=== PATIENT | female | born 1985 | race Caucasian/White ===

== ENCOUNTER 2016-06-09 12:20 | Emergency (ER) | payer MEDICAID ==
[~2016-06-09] VITALS: Ht 157.5 cm; Wt 88.5 kg
[~2016-06-09 12:20] MED LIST: DICLOFENAC 50MG50 MG PO; FIORICET 325 MG1 TAB PO; FLEXERIL10 MG PO; IBUPROFEN200 MG PO; NOMEDS XX; PROTONIX 40MG T40 MG PO; [UNRECOGNIZED DRUG - OTHER] TP
[2016-06-09] MEDS ORDERED: LEXAPRO 10 MG T10 MG PO (12:48)
[2016-06-09 13:04] LABS: UTC STREP SCREEN NOT DETECTED (NOTDETECTED)
[2016-06-09] MEDS ORDERED: ZOFRAN4 MG PO (13:10)
[2016-06-09] MEDS ORDERED: AUGMENTIN 875-1 EACH PO (13:10)
--- NOTE | 2016-06-09 13:11 | Urgent Treatment Center Report ---
History of Present Issue Date/Time Seen by Provider 06/09/16 1303 Visit Reason Pt arrived:Walked Presenting Problem:BODY ACHES AND NAUSEATED DIAHERRA HEADACHE WEAK FEELING X3 DAYS Location if Accident: Onset of symptoms date/time:/ or onset unknown for:MEDICAL HX UNKNOWN Have you (or family members/close friends) recently traveled outside the [place]? N If Yes, where/when: Have you had exposure to infectious disease within the past month? TB? Other? Specify: Patient states that she has been having sinus pain and pressure for about a week that has come and gone but 3 days ago it got worse and she began to have body aches, weakness, diarrhea and headache along with pressure in cheek area and under eyes ALLERGIES Coded Allergies: No Known Allergies (06/09/16) Home Medications Reported Medications Escitalopram Oxalate (Lexapro 10MG) 10 MG PO DAILY History Medical History General Angina: No VA: No Hypertension? No Hyperlipidemia? No CHF? No COPD? No Asthma? No Anemia? Yes Thyroid Problems? No CVA? No Seizures? No Diabetes? No UTI? No Stones? No GB Disease: No Nephritic Syndrome? No Asplenia? No Hepatitis? No MRSA? No TB? No Cancer? No Immunization HX DT/Tetanus 5-10 YRS Surgical Hx Previous Surgery?Y TONSILECTOMY X3 HYSTERECTOMY GALLBLADDER Social History Smoking Hx Smoker: Never Smoker Tobacco: No Alcohol Alcohol: No Review of Systems All Other Systems Reviewed and Negative ENT nose discharge, nose congestion. Gastrointestinal diarrhea, nausea Musculoskeletal denies other (body aches) Psychiatric/Neurological headache Physical Exam Vital Signs Vital Signs Date Time Temp Pulse Resp B/P Pulse O2 O2 Flow FiO2 Ox Delivery Rate 06/09 1246 98.0 89 18 110/66 97 General Appearance Overall looks ill, cheeks swollen under eye puffiness, nose red Ear, Nose, Throat sinus pain/drainage, nasal congestion, pain over maxillary sinus area, greenish brown mucous Respiratory Status Yes: trachea midline, chest symmetrical, non tender chest. No: respiratory distress. 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 No Results/Orders Laboratory Tests 06/09/16 1250: Influenza Type A Ag NOT DETECTED, Influenza Type B Ag NOT DETECTED, Group A Strep Screen NOT DETECTED Orders Procedure Date/time Status [facility] STREP SCREEN 06/09 125 Complete UTC FLU A,B 06/09 125 Complete Departure Departure Time of Disposition 1307 Disposition DC Home or Self Care(routine) Clinical Impression Primary Impression: Sinusitis Qualifiers: Sinusitis location: maxillary Chronicity: unspecified Qualified Code: J32.0 - Chronic maxillary sinusitis Condition STABLE Referrals MOUSTAPHA VILLASENOR (Family) Additional Instructions Drink plenty of fluids Over the counter Motrin or Tylenol as needed for fever or pain Follow up with family doctor Return if needed Discharge Counseling Counseled pt/family regarding diagnosis, test results, medications/RX, home care, follow up needs Prescriptions Current Visit Scripts Amoxicillin/Potassium Clav (Augmentin 875-125 Tablet) 1 EACH PO BID #14 TAB ONDANSETRON HCL (Zofran 4MG Tab) 4 MG PO Q6HP PRN NAUSEA AND VOMITING #10 TAB at 1310
[2016-06-09 13:14] VITALS: BP 110/66
== END 2016-06-09 13:20 | disposition home or self-care (01) ==
LOC: UTC 12:20
PROVIDERS: Nurse Practitioner
DX: J32.0 Chronic maxillary sinusitis (principal)

== ENCOUNTER 2016-12-20 11:44 | Emergency (ER) | payer MEDICAID ==
[~2016-12-20] VITALS: Ht 157.5 cm; Wt 88.5 kg
[~2016-12-20 11:44] MED LIST changes: +AUGMENTIN 875-1 EACH PO; +LEXAPRO 10 MG T10 MG PO; +ZOFRAN4 MG PO
[2016-12-20] MEDS ORDERED: CLARITIN 10MG T10 MG PO (12:02)
--- NOTE | 2016-12-20 12:30 | Urgent Treatment Center Report ---
History of Present Issue Date/Time Seen by Provider 12/20/16 1203 Visit Reason Pt arrived: Presenting Problem: Location if Accident: Onset of symptoms date/time:/ or onset unknown for: Have you (or family members/close friends) recently traveled outside the [place]? If Yes, where/when: Have you had exposure to infectious disease within the past month? TB? Other? Specify: Source patient, RN notes reviewed, family Exam Limitations no limitations Comment Right knee pain awakened her in the middle of the night. No prior injury. States her knees have always clicked and creaked, but has never had pain. Flexion/climbing exacerbates the pain. No catching noted. Mild swelling. No heat, fever or redness. No history of gout. ALLERGIES Coded Allergies: No Known Allergies (06/09/16) Home Medications Reported Medications Escitalopram Oxalate (Lexapro 10MG) 10 MG PO DAILY Loratadine (Claritin 10MG) 10 MG PO DAILY History Medical History General Angina: No [place]: No Hypertension? No Hyperlipidemia? No CHF? No COPD? No Asthma? No Anemia? Yes Thyroid Problems? No CVA? No Seizures? No Diabetes? No UTI? No Stones? No GB Disease: No Nephritic Syndrome? No Asplenia? No Hepatitis? No MRSA? No TB? No Cancer? No Immunization HX DT/Tetanus 5-10 YRS Surgical Hx Previous Surgery?Y TONSILECTOMY X3 HYSTERECTOMY GALLBLADDER Social History Alcohol Alcohol: No Review of Systems All Other Systems Reviewed and Negative Musculoskeletal see HPI, joint pain Physical Exam Vital Signs Vital Signs Date Time Temp Pulse Resp B/P Pulse O2 O2 Flow FiO2 Ox Delivery Rate 12/20 1200 98.0 61 20 110/67 100 General Appearance normal appearance, no apparent distress Respiratory Status No: respiratory distress, trachea midline, chest symmetrical. Lung Sounds bilateral: normal breath sounds, lungs clear. Cardiovascular normal exam, regular rate/rhythm, no peripheral edema, no gallop, no JVD, no murmur, no rub Extremities normal range of motion, normal inspection, swelling, tenderness of upper outer right knee Neurologic alert, normal exam, oriented x 3 Mental status normal mood/affect Medical Decision Making LABS/Meds/Orders Pt receiving controlled substance in ED? No Results/Orders Orders Procedure Date/time Status KNEE-3 VIEWS-RT 12/20 1213 Active XRAY/CT/US XRAY/CT/US XRAY knee XR interpretation by reviewed by me Xray Results decreased joint space Departure Departure Time of Disposition 1329 Disposition DC Home or Self Care(routine) Clinical Impression Primary Impression: Right knee pain Qualifiers: Chronicity: acute Qualified Code: M25.561 - Pain in right knee Secondary Impressions: Pain of right patella Condition STABLE Referrals MOUSTAPHA VILLASENOR (Family) Patient Instructions DI for Knee Pain Additional Instructions Ice tonight, knee brace as tolerated Discharge Counseling Counseled pt/family regarding diagnosis, test results, medications/RX, home care, follow up needs Prescriptions Current Visit Scripts NAPROXEN (NAPROSYN 500MG TAB) 500 MG PO BIDP PRN pain #30 TAB at 1336
[2016-12-20] MEDS ORDERED: NAPROSYN 500MG500 MG PO (13:31)
[2016-12-20 13:35] VITALS: BP 110/67
--- NOTE | 2016-12-20 13:50 | RADIOLOGY REPORT PS360 ---
KNEE-3 VIEWS-RT HISTORY: PAIN/NO INJURY Patient Age: 31 years: Female Ordering Physician: PIERRE DE LEON TECHNIQUE: 3 views right knee COMPARISON :None FINDINGS Right knee osseous structures intact. Bones well minerali No osteochondral irregularities evident zed. No fracture. No dislocation. Joint spaces well-maintained. . Possible joint effusion noting slight density and questionable fullness of suprapatellar bursa on lateral view. If pain should persist or progress she may need to consider MR to further evaluate IMPRESSION: --------- Osseous structures intact right knee. Joint spaces well-maintained on this nonweightbearing study. . cannot exclude a mild joint effusion at suprapatellar bursa on lateral view..
== END 2016-12-20 13:36 | disposition home or self-care (01) ==
LOC: UTC 11:44
DX: M25.561 Pain in right knee (principal); Z79.899 Other long term (current) drug therapy

== ENCOUNTER 2017-02-16 20:31 | Emergency (ER) | payer MEDICAID ==
[~2017-02-16] VITALS: Ht 157.5 cm; Wt 90.7 kg
[~2017-02-16 20:31] MED LIST changes: +CLARITIN 10MG T10 MG PO; +NAPROSYN 500MG500 MG PO
[2017-02-16] MEDS ORDERED: EFFEXOR XR150 MG PO (20:51)
--- OUTSIDE RECORDS SUMMARY | 2017-02-16 20:51 | External Medical Summary Rpt | CCD ---
Demographics Preferred Language Mohawk Marital Status Unknown Nondenominational Affiliation Unknown Race Unknown Ethnic Group Unknown Author Author BILLY Address Unknown Phone [email or web address] Purpose Continuity of Care Document - through 2016
--- OUTSIDE RECORDS SUMMARY | 2017-02-16 20:51 | External Medical Summary Rpt ---
Author Author BILLY Gautam, BILLY Gautam Organization [employer] Address Unknown Phone Unavailable
--- OUTSIDE RECORDS SUMMARY | 2017-02-16 20:51 | External Medical Summary Rpt | CCD ---
Author Author , BILLY CERVANTES Address Unknown Phone [email or web address] Purpose Continuity of Care Document - through 2016 Problems Code Diagnosis DOS Provider Status E66.9 Obesity, unspecified F33.0 Major depressive disorder, recurrent, mild F41.8 Other specified anxiety disorders K29.70 GASTRITIS, UNSPECIFIED , WITHOUT BLEEDING N63.10 Unspecified lump in the right breast, unspecified quadrant R07.9 CHEST PAIN, UNSPECIFIED R42 Dizziness and giddiness S40.021A CONTUSION OF RIGHT UPPER ARM, INITIAL ENCOUNTER Z83.3 Family history of diabetes mellitus
--- OUTSIDE RECORDS SUMMARY | 2017-02-16 20:51 | External Medical Summary Rpt | CCD ---
Author Author , BILLY CERVANTES Address Unknown Phone [email or web address] Purpose Continuity of Care Document - through [...]
--- OUTSIDE RECORDS SUMMARY | 2017-02-16 20:51 | External Medical Summary Rpt | CCD ---
Demographics Preferred Language Occitan Marital Status Unknown Moravian Affiliation Unknown Race Unknown Ethnic Group Unknown Author Author BILLY Address Unknown Phone [email or web address] Purpose Continuity of Care Document - through 2016
--- OUTSIDE RECORDS SUMMARY | 2017-02-16 20:51 | External Medical Summary Rpt | CCD ---
Demographics Preferred Language Maltese Marital Status Unknown Sabianist Affiliation Unknown Race Unknown Ethnic Group Unknown Author Author , BILLY CERVANTSE Address Unknown Phone Immunization No patient found.
--- OUTSIDE RECORDS SUMMARY | 2017-02-16 20:51 | External Medical Summary Rpt | CCD ---
Demographics Preferred Language Kazakh Marital Status Unknown Church Affiliation Unknown Race Unknown Ethnic Group Unknown Author Author , BILLY CERVANTES Address Unknown Phone Immunization No patient found.
[2017-02-16] MEDS ORDERED: PRILOSEC20 M1 PO (20:52)
[2017-02-16 21:29] LABS: LYMPH # 0.9 K/mm3 (0.7-4.5); LYMPH % 12.7 % (10-50.0)
[2017-02-16 21:30] LABS: URINE BILIRUBIN - DIPSTICK NEGATIVE (NEG); URINE BLOOD NEGATIVE (NEG)
[2017-02-16 21:42] LABS: HEMOGLOBIN 13.2 g/dL (12.2-16.2)
--- NOTE | 2017-02-16 22:48 | Emergency Room Report ---
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 N Clinical Suspician of Infection? Y Mental Status: 1 - Regular (Normal Baseline) Sepsis Risk:Low Sepsis Risk Have you (or family members/close friends) recently traveled outside the [place]? N If Yes, where/when: Have you had exposure to infectious disease within the past month? N TB? Other? Specify: Source patient, RN notes reviewed, family, old records Exam Limitations no limitations Comment pt with 2 day hx of nausea and now with lt upper abd pain with no rash or trauma and no diarrhea Cardiac Chest Pain Chest pain indicative of cardiac No Timing/Duration this evening Severity moderate ALLERGIES Coded Allergies: No Known Allergies (02/16/17) Home Medications Reported Medications VENLAFAXINE HCL (Effexor XR 150MG) 150 MG PO DAILY OMEPRAZOLE MAGNESIUM (Prilosec 20MG) 20 MG PO DAILY History Medical History General CAD? No Angina: No SD: No Hypertension? No Hyperlipidemia? No CHF? No DVT? No PE? No COPD? No Asthma? No Anemia? Yes GERD? No Gastric ulcers? No GI Bleed? No Hernia? No Thyroid Problems? No Hypothyroidism? No CVA? No Seizures? No Diabetes? No Renal Insuffiency? No End Stage Renal Disease? No UTI? No Stones? No GB Disease: No Nephritic Syndrome? No Asplenia? No Hepatitis? No Sickle Cell Disease? No Arthritis? No Migraines? No Cataracts? No Glaucoma? No MRSA? No HIV? No TB? No Anxiety? No Depression? No Cancer? 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 Respiratory denies cough, denies shortness of breath Cardiovascular denies chest pain, denies palpitations, denies syncope Gastrointestinal see HPI, abdominal pain, denies diarrhea, nausea, vomiting Genitourinary denies: dysuria, frequency, hesitancy, hematuria. Musculoskeletal denies back pain, denies joint pain, denies joint swelling, denies neck pain Skin denies rash Psychiatric/Neurological denies headache, denies seizure Physical Exam Vital Signs Vital Signs Date Time Temp Pulse Resp B/P Pulse O2 O2 Flow FiO2 Ox Delivery Rate 02/16 2302 97.7 61 20 116/71 96 02/16 2217 61 20 116/71 96 02/165 18 02/16 2042 97.7 61 20 109/66 96 - WBC >12,000 or <4,000 or 10% bands? 2 or more SIRS Criteria Met? B/P: MAP:80 Creatinine >2.0? UA output<0.5ml/kg/hr for 2 hrs? Platelet count >100,000? Lactate >2.0mmol/1? INR >1.2 or PTT > than 60 sec? Evidence of Organ Dysfunction? Provider documented clinical suspician of infection? Y Sepsis Criteria Count: 1 Sepsis Risk: Low Sepsis Risk General Appearance no apparent distress Eye Exam - bilateral eye PERRL, bilateral eye EOMI Ear, Nose, Throat normal ENT inspection Neck supple Respiratory Status No: respiratory distress. Lung Sounds bilateral: lungs clear. 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 No Results/Orders Laboratory Tests 02/16/172119: Sodium 136, Potassium 3.5, Chloride 103, Carbon Dioxide 25, BUN 10, Creatinine 0.9, Estimated Creat Clear 129, Estimated GFR (MDRD) 73, Glucose 101, Calcium 8.3 L, Total Bilirubin 0.9, AST 48 H, ALT 33, Alkaline Phosphatase 62, Total Protein 6.9, Albumin 3.5, Globulin 3.4 H, Albumin/Globulin Ratio 1.0 L, Amylase 51, Lipase 134, WBC 6.9, RBC 4.35, Hgb 13.2, Hct 38.0, MCV 87.2, RDW 12.4, Plt Count 230, MPV 7.3 L, Gran % 77.6, Gran # 5.4, Lymphocytes % 12.7, Monocytes % 4.4, Eosinophils % 4.7, Basophils % 0.6, Lymphocytes # 0.9, Monocytes # 0.3, Eosinophils # 0.3, Basophils # 0.0, PUBS MCHC 34.4, MCH 30.0 02/16/17 2030: Urine Color YELLOW, Urine Appearance CLEAR, Urine pH 6.0, Ur Specific [place] 1.025, Urine Protein NEGATIVE, Urine Ketones NEGATIVE, Urine Blood NEGATIVE, Urine Nitrate NEGATIVE, Urine Bilirubin NEGATIVE, Urine Urobilinogen 1.0, Ur Leukocyte Esterase NEGATIVE, Urine RBC NONE, Urine WBC OCC, Ur Squamous Epith Cells 10-20, Urine Bacteria 1+, Urine Mucus 1+, Urine Glucose NEGATIVE Current Medication Orders Sig/Grey Start time Last Medication Dose Route Stop Time Status Admin Sodium Chloride 1,000 ML .Q1H1M 02/16 2200 DC 02/16 IV 02/16 Sodium Chloride 10 ML PRN PRN 02/16 2200 AC IV 02/17 2153 Sodium Chloride 1,000 ML .STK-MED ONE 02/16 2154 DC IV Ondansetron HCl 0 .STK-MED ONE 02/16 2126 DC .ROUTE Ketorolac 0 .STK-MED ONE 02/16 2125 DC Tromethamine .ROUTE Ketorolac 30 MG ONCE ONE 02/16 2115 DC 02/16 Tromethamine IV 02/16 Ondansetron HCl 4 MG ONCE ONE 02/16 2115 DC 02/16 IV 02/16 Sodium Chloride 1,000 ML .Q1H1M 02/16 2115 DC 02/16 IV 02/16 Sodium Chloride 10 ML PRN PRN 02/16 2115 AC IV 02/17 2107 Sodium Chloride 10 ML PRN PRN 02/16 2045 AC IV 02/18 2040 Orders Procedure Date/time Status DIET-NOTHING BY MOUTH 02/[address] ABD & PELVIS W/O CONTRAST 02/[address] ABD/PELVIS REQ 02/17 2040 Complete IV SALINE LOCK 02/17 2040 Active URINALYSIS/COMPLETE 02/17 2040 Complete URINE 02/17 2040 Complete LIPASE 02/17 2040 Complete CBC WITH AUTO DIFF 02/17 2040 Complete CHEM 12 PROFILE 02/17 2040 Complete AMYLASE 02/17 2040 Complete XRAY/CT/US XRAY/CT/US CT abdomen, pelvis CT interpretation by discussed w/radiologist Time results known: 2307 CT Results abnormal (see report) Departure Departure Time of Disposition 2304 Disposition DC Home or Self Care(routine) Clinical Impression Primary Impression: Abdominal pain Qualifiers: Abdominal location: left upper quadrant Qualified Code: R10.12 - Left upper quadrant pain Condition STABLE Referrals MOUSTAPHA VILLASENOR (Family) Patient Instructions DI for Vomiting -- Adult Additional Instructions recheck if needed and call pcp for follow up Discharge Counseling Counseled pt/family regarding diagnosis, test results, medications/RX, follow up needs ED Critical Care Critical Care No at 2308
[2017-02-16 23:02] VITALS: BP 116/71
--- NOTE | 2017-02-17 07:11 | RADIOLOGY REPORT PS360 ---
CT ABD PELVIS W/O CONTRAST CLINICAL INDICATION: Generalized abdominal pain C/O ABD PAIN ORDERING PHYSICIAN: Jose C Knox MD PATIENT AGE: 31 years COMPARISON: None TECHNIQUE: Axial images obtained with sagittal and coronal reformats. PROCEDURE: Oral Contrast: None IV Contrast: None . FINDINGS: The lung bases are clear. Increased density is present in the retroareolar region medially involving the right breast and could only be related to fibroglandular tissue. Cannot exclude the possibility of breast lesion. Please correlate with physical exam. Breast ultrasound may be of further value. Prior cholecystectomy without biliary dilatation. No focal liver lesion. The spleen is slightly prominent at 13 cm. The adrenal glands, pancreas, and kidneys have an unremarkable appearance. Unremarkable appendix. No evidence of intestinal obstruction or free air. No evidence of diverticulitis. There has been prior hysterectomy. The bowel loops in the left upper abdomen are slightly prominent and may be related to enteritis. There is protrusion of the abdominal wall at the level of the umbilicus with small umbilical hernia. No acute bony anomalies. IMPRESSION: 1. Possible enteritis. 2. No other acute findings. 3. Nodular density medial aspect right breast possibly related to fibroglandular tissue. Ultrasound may exclude the possibility of an underlying lesion.
== END 2017-02-16 23:29 | disposition home or self-care (01) ==
LOC: ER 20:31
PROVIDERS: Emergency Medicine
DX: R10.12 Left upper quadrant pain (principal)
CPT/HCPCS: J2405